=== PATIENT | male | born 1995 ===

== ENCOUNTER 2024-09-21 16:27 | Emergency (ER) | payer BC, OTHER | END 2024-09-21 17:06 | disposition home or self-care (01) | LOC: FB.ED 16:27 | DX: S41.151A Open bite of right upper arm, initial encounter (principal); Z88.8 Allergy status to other drugs, medicaments and biological substances; Z79.899 Other long term (current) drug therapy; W50.3XXA Accidental bite by another person, initial encounter | CPT/HCPCS: 99283 ==